=== PATIENT | female | born 1960 | race Caucasian/White ===

== ENCOUNTER 2018-03-17 23:18 | Emergency (ER) | payer MEDICAID ==
[2018-03-17] MEDS ORDERED: Cephalexin 500 MG Cap ONE (23:40)
[2018-03-17] MEDS ORDERED: Lidocaine 1% with EPINEPHrine 1:100,000 50 ML MDV ONE (23:55)
--- NOTE | 2018-03-18 01:01 | EDM.PDOC ---
ED HPI GENERAL MEDICAL PROBLEM - General Chief Complaint: Laceration Stated Complaint: CUT LEG Time Seen by Provider: 03/18/18 00:01 Source of Information: Reports: Patient History Limitations: Reports: No Limitations - History of Present Illness INITIAL COMMENTS - FREE TEXT/NARRATIVE: Patient is a 57 year old woman who hit a hard sharp object in the dark [place] the dock tonight and she has a 4 cm laceration on the front of her right walters. She needs a tetanus shot. No other complaints. Onset: Sudden Onset Date: 03/17/18 Onset Time: 22:00 Duration: Constant Location: Reports: Lower Extremity, Right Quality: Reports: Sharp Severity: Mild Improves with: Reports: None Worsens with: Reports: None Context: Reports: Trauma (Hit hard sharp object in dark. Not sure what she hit. Thinks is was a steel grill.) Associated Symptoms: Reports: No Other Symptoms ED ROS GENERAL - Review of Systems Review Of Systems: ROS reveals no pertinent complaints other than HPI. ED EXAM, SKIN/RASH Exam: See Below Exam Limited By: No Limitations General Appearance: Alert, WD/WN, No Apparent Distress Head: Atraumatic, Normocephalic Neck: Normal Inspection, Supple, Non-Tender, Full Range of Motion Respiratory/Chest: No Respiratory Distress, Lungs Clear, Normal Breath Sounds, No Accessory Muscle Use, Chest Non-Tender Cardiovascular: Normal Peripheral Pulses, Regular Rate, Rhythm, No Edema, No Gallop, No JVD, No Murmur, No Rub Peripheral Pulses: 4+: Posterior Tibial (L), Posterior Tibial (R), Dorsalis Pedis (L), Dorsalis Pedis (R) GI/Abdominal: Normal Bowel Sounds, Soft, Non-Tender, No Organomegaly, No Distention, No Abnormal Bruit, No Mass Extremities: Other (Wound on the right lower walters that is into the muscle layer and 4 cm long in a crescent shape.) Neurological: Alert, Oriented, CN II-XII Intact, Normal Cognition, Normal Gait, Normal Reflexes, No Motor/Sensory Deficits Psychiatric: Normal Affect Lymphatic: No Adenopathy ED SKIN PROCEDURES - Laceration/Wound Repair Right Lower Anterior Midline Distal Leg Lac/Wound length In cm: 4 Appearance: Subcutaneous, Muscle, Mildly Contaminated, Other ([place] shaped.) Distal NVT: Neuro & Vascular Intact, No Tendon Injury Anesthetic Type: Local Local Anesthesia - Lidocaine (Xylocaine): 2% with EPI Local Anesthetic Volume: 4cc Skin Prep: Chlorhexidine (Hibiciens), Providone-Iodine (Betadine), Saline Exploration/Debridement/Repair: Wound Explored, In a Bloodless Field, Explored to Base, Minimal Debridement, Foreign Material Removed Closed with: Sutures Suture Size: 3-0 # of Sutures: 10 Suture Type: Nylon, Interrupted Suture Size: other (5-0 vicryl) # of Sutures: 3 Course - Vital Signs Text/Narrative:: Unremarkable ED course. Went over wound care and she was given a dtap. She also was put on Cephalexin 500 mg orally every 12 hours for 10 days, #20, no refills. Return to clinic in 9 days for suture removal. Departure - Departure Time of Disposition: 01:06 Disposition: Home, Self-Care 01 Condition: Good Clinical Impression: Laceration of lower leg with foreign body Qualifiers: Encounter type: initial encounter Laterality: right Qualified Code(s): S81.821A - Laceration with foreign body, right lower leg, initial encounter - Discharge Information Instructions: Laceration Care, Adult Forms: ED Department Discharge
[2018-03-18] MEDS ORDERED: Diphtheria/Tetanus Toxoids,Adult (Td) 0.5 ML SDV IM ONE (01:48)
== END 2018-03-18 00:45 | disposition home or self-care (01) ==
LOC: LB.ED 23:18
DX: S81.821A Laceration with foreign body, right lower leg, initial encounter (principal); W26.8XXA Contact with other sharp object(s), not elsewhere classified, initial encounter
CPT/HCPCS: 12002; 90714; 99283-25; A9270-GY

== ENCOUNTER 2021-02-13 18:20 | Emergency (ER) | payer MEDICAID ==
[2021-02-13] MEDS: Ketorolac 30 MG/ML SDV IM ONE (19:04)
--- NOTE | 2021-02-13 19:08 | EDM.PDOC ---
ED HPI GENERAL MEDICAL PROBLEM - General Chief Complaint: Back Pain or Injury Stated Complaint: rib pain Time Seen by Provider: 02/13/21 18:45 Source of Information: Reports: Patient History Limitations: Reports: No Limitations - History of Present Illness INITIAL COMMENTS - FREE TEXT/NARRATIVE: pt presents to the ER with right side rib pain. she states she had a fall on her pontoon on 07 february. pt states some soreness of area where she landed approximate rib 7 right side mid scapular. 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 she does have pain with palpation of this rib but no others above or below, no shortness of breath, no dizziness or lightheadedness. deep breathing and coughing exacerbate pain. last dose of tylenol this morning. Onset: Today Right Upper Back Pain Score (Numeric/FACES): 8 - Related Data Allergies Allergy/AdvReac Type Severity Reaction Status Date / Time No Known Allergies Allergy Verified 02/13/21 18:39 Home Meds: Home Meds NK [No Known Home Meds] 02/13/21 [History] Past Medical History Gastrointestinal History: Reports: Other (See Below) Other Gastrointestinal History: peptic ulcer [employer] History: Reports: Social & Family History - Tobacco Use Tobacco Use Status *Q: Former Tobacco User Used Tobacco, but Quit: Yes Month/Year Tobacco Last Used: 04/07/2019 - Caffeine Use Caffeine Use: Reports: Coffee - Recreational Drug Use Recreational Drug Use: No ED ROS GENERAL - Review of Systems Review Of Systems: Comprehensive ROS is negative, except as noted in HPI. ED EXAM, GENERAL - Physical Exam Exam: See Below Exam Limited By: No Limitations General Appearance: Alert, WD/WN, No Apparent Distress Eye Exam: Bilateral Eye: EOMI, PERRL Head: Atraumatic, Normocephalic Respiratory/Chest: No Respiratory Distress, Lungs Clear, Normal Breath Sounds, No Accessory Muscle Use, Splinting, Other (right side rib pain, mid scapular approx 7 rib, significantly TTP.) Cardiovascular: Normal Peripheral Pulses, Regular Rate, Rhythm, No JVD, No Murmur Back Exam: Normal Inspection, Full Range of Motion, Other (no paraspinal or spinous process TTP) Neurological: Alert, Oriented, CN II-XII Intact, Normal Cognition Course - Vital Signs Last Recorded V/S: Last Vital Signs Temp 98.6 F 02/13/21 18:34 Pulse 68 02/13/21 18:34 Resp 16 02/13/21 18:34 BP 129/61 02/13/21 18:34 Pulse Ox 97 02/13/21 18:34 - Orders/Labs/Meds Orders: Active Orders 24 hr Category Date Time Status Chest 2V [CR] Stat Exams 02/13/21 18:57 Ordered Ketorolac [Toradol] Med 02/13/21 18:58 Once 15 mg IM ONETIME ONE - Radiology Interpretation Free Text/Narrative:: cxr shows no pneumothoracies, infiltrate, consolodation, widened mediastinum, cardiomegaly noted. Departure - Departure Time of Disposition: 19:55 Disposition: Home, Self-Care 01 Condition: Good Clinical Impression: Rib pain on right side - Discharge Information *PRESCRIPTION DRUG MONITORING PROGRAM REVIEWED*: Not Applicable *COPY OF PRESCRIPTION DRUG MONITORING REPORT IN PATIENT MAURICIO: Not Applicable Forms: ED Department Discharge Additional Instructions: Interchange Tylenol with Ibuprofen. OK to take Tylenol 1000mg 4 times a day and 800mg Ibuprofen 4 times a day. Care Plan Goals: assessment: right side rib pain plan: no fractures seen on xray or by radiologist read. continue ibuprofen and tylenol OTC. ice packs prn activity as tolerated. differentials considered: pneumothorax, rib fracture, soft tissue injury of rib. Sepsis Event Note (ED) - Evaluation Sepsis Screening Result: No Definite Risk - Focused Exam Vital Signs: Vital Signs Temp Pulse Resp BP Pulse Ox 02/13/21 18:34 98.6 F 68 16 129/61 97 - My Orders Last 24 Hours: My Active Orders 02/13/21 18:57 Chest 2V [CR] Stat 02/13/21 18:58 Ketorolac [Toradol] 15 mg IM ONETIME ONE - Assessment/Plan Last 24 Hours: My Active Orders 02/13/21 18:57 Chest 2V [CR] Stat 02/13/21 18:58 Ketorolac [Toradol] 15 mg IM ONETIME ONE
--- NOTE | 2021-02-14 08:09 | CR ---
Date of Service: 02/13/21 Clinical Data: fall, right side rib pain, SOB PA AND LATERAL CHEST: Comparison is made to a prior exam dated 12/28/09. The heart size is normal. The lungs are clear. No pneumothorax. No pleural effusions. There is a displaced fracture of the right 8th rib laterally. No other definite rib abnormalities. There is degenerative disk disease at multiple levels in the thoracic spine. There is slight anterior wedging of the mid thoracic vertebrae, age indeterminate. IMPRESSION: Displaced fracture right 8th rib posterolaterally. Other findings as discussed above. [id number] [facility]
== END 2021-02-13 19:55 | disposition home or self-care (01) ==
LOC: LB.ED 18:20
DX: R07.81 Pleurodynia (principal); Z87.891 Personal history of nicotine dependence
CPT/HCPCS: 71046; 96372; 99283; J1885

== ENCOUNTER 2024-05-30 17:25 | Emergency (ER) | payer MEDICAID ==
[2024-05-30 18:35] LABS: BASOPHILS ABSOLUTE AUTO 0.03 K/uL (0.02-0.10); BASOPHILS PERCENT AUTO 0.6 % (0.0-0.5); EOSINOPHILS ABSOLUTE AUTO 0.08 K/uL (0.04-0.40); EOSINOPHILS PERCENT AUTO 1.6 % (1.0-5.0); HEMATOCRIT 39.4 % (37.0-47.0); HEMOGLOBIN 13.2 g/dL (11.5-16.5); LYMPHOCYTES ABSOLUTE AUTO 2.06 K/uL (1.50-4.00); LYMPHOCYTES PERCENT AUTO 41.4 % (20.0-40.0); MEAN CORPUSCULAR HEMOGLOBIN 31.2 pg (27.0-32.0); MEAN CORPUSCULAR HGB CONC 33.5 g/dL (31.0-35.0); MEAN CORPUSCULAR VOLUME 93 fL (76-96); MEAN PLATELET VOLUME 9.5 fL (6.0-10.0); MONOCYTES ABSOLUTE AUTO 0.38 K/uL (0.20-0.80); MONOCYTES PERCENT AUTO 7.6 % (3.0-10.0); NEUTROPHILS ABSOLUTE AUTO 2.42 K/uL (2.00-7.50); NEUTROPHILS PERCENT AUTO 48.8 % (45.0-70.0); PLATELET COUNT,PLT 273 K/uL (150-500); RED BLOOD CELL COUNT 4.23 M/uL (3.80-5.80); RED CELL DISTRIBUTION WIDTH 12.6 % (11.0-16.0)
[2024-05-30 18:52] LABS: PTT,PARTIAL THROMBOPLSTIN TIME 23.4 SECONDS (24.4-33.2)
[2024-05-30 18:54] LABS: A/G RATIO 1.1 (0.8-2.0); ALANINE AMINOTRANSFERASE,ALT 41 U/L (12-78); ALBUMIN 3.8 g/dL (3.4-5.0); ALKALINE PHOSPHATASE 73 U/L (46-116); ANION GAP 12.9 mmol/L (5.0-15.0); ASPARTATE AMNIOTRANSFERASE,AST 25 U/L (15-37); BILIRUBIN TOTAL 0.3 mg/dL (0.0-1.0); BLOOD UREA NITROGEN,BUN 13 mg/dL (8-26); BUN/CREATININE RATIO 17.8 (6-25); CALCIUM 9.1 mg/dL (8.5-10.1); CARBON DIOXIDE,CO2 29.9 mmol/L (21.0-32.0); CHLORIDE,CL 102 mmol/L (98-107); CREATININE 0.73 mg/dL (0.55-1.02); EST CRCL DRUG DOSING (CG) 72.82 mL/min; ESTIMATED GFR 94 mL/min (>60); GLUCOSE RANDOM 92 mg/dL (74-100); POTASSIUM,K 3.8 mmol/L (3.5-5.1); PROTEIN TOTAL,TP 7.2 g/dL (6.4-8.2); SODIUM,NA 141 mmol/L (136-145)
[2024-05-30 19:03] LABS: C-REACTIVE PROTEIN < 5.0 mg/L (<5.0)
[2024-05-30 19:33] LABS: SEDIMENTATION RATE MANUAL 15 mm/hr (0-30)
== END 2024-05-30 20:37 | disposition home or self-care (01) ==
LOC: LB.ED 17:25
DX: R51.9 Headache, unspecified (principal); Z87.891 Personal history of nicotine dependence
CPT/HCPCS: 36415; 70450; 80053; 85025; 85610; 85651; 85730; 86140; 99283; 99284